=== PATIENT | female | born 1990 | race Caucasian/White ===

== ENCOUNTER 2018-10-19 22:41 | Emergency (ER) | payer OTHER ==
[~2018-10-19] VITALS: Wt 68.9 kg
[2018-10-20] MEDS ORDERED: ACETAMINOPHEN 325 MG TAB PO STA (00:34)
--- NOTE | 2018-10-20 00:57 | ERD ---
ER Documentation Chief Complaint Chief Complaint abd pain x 1 day, staes 4-5 weeks . denies vb HPI 28-year-old female presenting to the emergency department complaining of bilateral suprapubic cramping intermittently for the past 1 day. She is G2, , last menstrual cycle of 09/06/2018, reportedly 5 weeks . She does not have an SPINE SURGEON physician. Symptoms are currently mild in severity. She denies any vaginal bleeding. She tried no medication for relief of symptoms at home. No other symptoms reported currently. ROS All systems reviewed and are negative except as per history of present illness. Medications Home Meds Active Scripts Cephalexin* (Keflex*) 500 Mg Capsule, 500 MG PO TID for 7 Days, CAP Prov:TREVOR SWANSON PA-C 10/20/18 Allergies Allergies: Coded Allergies: No Known Drug Allergies (Verified Allergy, Unknown, 10/19/18) PMhx/Soc Medical and Surgical Hx: pt denies Surgical Hx History of Surgery: Yes (Abominal hernia surgery 2017) Hx Alcohol Use: No Hx Substance Use: No Hx Tobacco Use: No FmHx Family History: No diabetes Physical Exam Vitals Vital Signs Date Temp Pulse Resp B/P (MAP) Pulse Ox O2 O2 Flow FiO2 Time Delivery Rate 10/20/18 97.8 63 19 109/60 99 Room Air 03:15 (76) 10/19/18 98.9 69 18 123/58 100 23:07 (79) Physical Exam Const: No acute distress Head: Atraumatic Eyes: Normal Conjunctiva ENT: Normal External Ears, Nose and Mouth. Neck: Full range of motion. No meningismus. Resp: Clear to auscultation bilaterally Cardio: Regular rate and rhythm, no murmurs Abd: Soft, non tender, non distended. Normal bowel sounds. No rebound t enderness or guarding. No McBurney's point tenderness. Mild suprapubic tenderness palpation bilaterally, worse on the left. Skin: No petechiae or rashes Back: No midline or flank tenderness. No CVA tenderness. Ext: No cyanosis, or edema Neur: Awake and alert Psych: Normal Mood and Affect Result Diagram: 10/20/18 0043 10/20/18 0043 Results 24 hrs Laboratory Tests Test 10/20/18 00:43 6/7/19 00:44 White Blood Count 9.5 10^3/ul Red Blood Count 4.32 10^6/ul Hemoglobin 12.7 g/dl Hematocrit 38.6 % Mean Corpuscular Volume 89.4 fl Mean Corpuscular Hemoglobin 29.4 pg Mean Corpuscular Hemoglobin Concent 32.9 g/dl Red Cell Distribution Width 13.6 % Platelet Count 267 10^3/UL Mean Platelet Volume 11.7 fl Immature Granulocytes % 0.300 % Neutrophils % 58.1 % Lymphocytes % 32.7 % Monocytes % 7.2 % Eosinophils % 1.1 % Basophils % 0.6 % Nucleated Red Blood Cells % 0.0 /100WBC Immature Granulocytes # 0.030 10^3/ul Neutrophils # 5.5 10^3/ul Lymphocytes # 3.1 10^3/ul Monocytes # 0.7 10^3/ul Eosinophils # 0.1 10^3/ul Basophils # 0.1 10^3/ul Nucleated Red Blood Cells # 0.0 10^3/ul Sodium Level 139 mmol/L Potassium Level 3.8 mmol/L Chloride Level 103 mmol/L Carbon Dioxide Level 26 mmol/L Anion Gap 10 Blood Urea Nitrogen 10 mg/dl Creatinine 0.79 mg/dl Est Glomerular Filtrat Rate mL/min > 60 mL/min Glucose Level 87 mg/dl Calcium Level 9.4 mg/dl Total Bilirubin 0.4 mg/dl Direct Bilirubin 0.00 mg/dl Indirect Bilirubin 0.4 mg/dl Aspartate Amino Transf (AST/SGOT) 43 IU/L Alanine Aminotransferase (ALT/SGPT) 41 IU/L Alkaline Phosphatase 73 IU/L Total Protein 8.1 g/dl Albumin 4.6 g/dl Globulin 3.50 g/dl Albumin/Globulin Ratio 1.31 Beta HCG, Quantitative 40495.0 mIU/ml Urine Color YELLOW Urine Clarity SLIGHTLY CLOUDY Urine pH 6.0 Urine Specific [place] 1.010 Urine Ketones NEGATIVE mg/dL Urine Nitrite NEGATIVE mg/dL Urine Bilirubin NEGATIVE mg/dL Urine Urobilinogen NEGATIVE mg/dL Urine Leukocyte Esterase 3+ Vipul/ul Urine Microscopic RBC 8 /HPF Urine Microscopic WBC 19 /HPF Urine Squamous Epithelial Cells FEW /HPF Urine Bacteria FEW /HPF Urine Hemoglobin 2+ mg/dL Urine Glucose NEGATIVE mg/dL Urine Total Protein NEGATIVE mg/dl Current Medications Medications Dose Sig/Rick Start Time Status Last (Trade) Ordered Route PRN Stop Time Admin Dose Reason Admin 650 mg ONCE STAT 10/20/18 DC 10/20/18 Acetaminophen PO 00:34 10/20/18 00:51 (Tylenol 00:35 Tab) Procedures/MDM 28-year-old female presents to the emergency department complaining of bilateral suprapubic pain. She is reportedly 5 weeks . Obstetrics ultrasound revealed a live intrauterine with heart tones present. Patient was administered Tylenol in the department with good response. She was improved prior to discharge. Beta-hCG was consistent with term of . Patient symptoms likely secondary to urinary tract infection. No evidence of ectopic , tubo-ovarian abscess, ovarian torsion, or other emergencies. Patient will be discharged home in stable condition with instructions to follow- up with SPINE SURGEON physician within the next 24 to 48 hours and return to the department immediately for any new or worsening or concerning symptoms. Patient was in agreement with the diagnosis, plan, need for follow-up, and return precau tions. Departure Diagnosis: Primary Impression: Pelvic pain complicating Additional Impression: UTI (urinary tract infection) Condition: Fair Patient Instructions: Pelvic Pain In : Unclear (2-3 Trimester) TREVOR SWANSON PA-C Oct 20, 2018 00:57
[2018-10-20] MEDS ORDERED: CEPH-443 PO (03:02)
[2018-10-20 03:15] VITALS: BP 109/60; PULSE 63; RESP 19
== END 2018-10-20 03:16 | disposition home or self-care (01) ==
LOC: FTE 22:41
DX: O26.891 Other specified pregnancy related conditions, first trimester (principal); R10.2 Pelvic and perineal pain; O23.41 Unspecified infection of urinary tract in pregnancy, first trimester; Z3A.01 Less than 8 weeks gestation of pregnancy
CPT/HCPCS: 36415; 76801; 80053; 81001; 84702; 85025; 86900; 86901; Z7502; Z7610

== ENCOUNTER 2018-12-11 23:41 | Emergency (ER) | payer OTHER ==
[~2018-12-11] VITALS: Ht 157.5 cm; Wt 75.0 kg
[~2018-12-11 23:41] MED LIST: CEPH-443 PO; HYDR-4011 PO; IBUP-1542 PO
[2018-12-11 23:47] VITALS: Ht 157.5 cm; Wt 75.0 kg
[2018-12-12] MEDS ORDERED: SOD CHLORIDE 0.9% 1,000 ML IV STA (01:06)
--- NOTE | 2018-12-12 01:29 | ERD ---
ER Documentation Chief Complaint Chief Complaint VAGINAL BLEEDING HPI G1, P2 female with an LMP of September 06, 2017 presents with complaint of bleeding and abdominal cramping since 3 hours ago. States that she took Tylenol at 10 PM. States that she thinks it might be a miscarriage does not want to lose her baby. Patient denies any allergies. Patient denies any medical problems. Patient denies any nausea, vomiting, diarrhea, fevers, chills, flank pain. ROS All systems reviewed and are negative except as per history of present illness. Medications Home Meds Active Scripts Hydrocodone/Acetaminophen ([place] 5-325 Tablet) 1 Each Tablet, 1-2 TAB PO Q6H PRN for PAIN, #15 TAB Prov:TREVOR RIZVI 12/12/18 Ibuprofen* (Motrin*) 600 Mg Tab, 600 MG PO Q6, #30 TAB Prov:TREVOR RIZVI 12/12/18 Cephalexin* (Keflex*) 500 Mg Capsule, 500 MG PO TID for 7 Days, CAP Prov:TREVOR SWANSON PA-C 10/20/18 Allergies Allergies: Coded Allergies: No Known Drug Allergies (Verified Allergy, Unknown, 10/19/18) PMhx/Soc History of Surgery: No Hx Respiratory Disorders: Yes (aSTHMA) Hx Alcohol Use: No Hx Substance Use: No Hx Tobacco Use: No Smoking Status: Never smoker Physical Exam Vitals Vital Signs Date Temp Pulse Resp B/P (MAP) Pulse Ox O2 O2 Flow FiO2 Time Delivery Rate 12/12/18 98.6 83 18 104/59 98 03:52 (74) 12/11/18 99.6 94 16 119/59 97 23:47 (79) Physical Exam Const: No acute distress Head: Atraumatic Eyes: Normal Conjunctiva ENT: Normal External Ears, Nose and Mouth. Neck: Full range of motion. No meningismus. Resp: Clear to auscultation bilaterally Cardio: Regular rate and rhythm, no murmurs Abd: Soft, non tender, non distended. Normal bowel sounds Skin: No petechiae or rashes Back: No midline or flank tenderness Ext: No cyanosis, or edema Neur: Awake and alert Psych: Normal Mood and Affect Pelvic: As I went to assess the vaginal bleeding, I saw the fetus in the patient's underwear along with the placenta. Fetus was placed in a pathology container and sent to pathology. Result Diagram: 12/12/18 0125 12/12/18 0126 Results 24 hrs Laboratory Tests Test 12/12/18 01:25 12/12/18 01:26 White Blood Count 21.1 10^3/ul Red Blood Count 4.10 10^6/ul Hemoglobin 12.0 g/dl Hematocrit 35.8 % Mean Corpuscular Volume 87.3 fl Mean Corpuscular Hemoglobin 29.3 pg Mean Corpuscular Hemoglobin Concent 33.5 g/dl Red Cell Distribution Width 13.2 % Platelet Count 269 10^3/UL Mean Platelet Volume 11.2 fl Immature Granulocytes % 0.500 % Neutrophils % 89.0 % Lymphocytes % 5.1 % Monocytes % 5.0 % Eosinophils % 0.0 % Basophils % 0.4 % Nucleated Red Blood Cells % 0.0 /100WBC Immature Granulocytes # 0.110 10^3/ul Neutrophils # 18.8 10^3/ul Lymphocytes # 1.1 10^3/ul Monocytes # 1.1 10^3/ul Eosinophils # 0.0 10^3/ul Basophils # 0.1 10^3/ul Nucleated Red Blood Cells # 0.0 10^3/ul Urine Color YELLOW Urine Clarity SLIGHTLY CLOUDY Urine pH 6.0 Urine Specific [place] 1.010 Urine Ketones 2+ mg/dL Urine Nitrite NEGATIVE mg/dL Urine Bilirubin NEGATIVE mg/dL Urine Urobilinogen NEGATIVE mg/dL Urine Leukocyte Esterase TRACE Vipul/ul Urine Microscopic RBC 48 /HPF Urine Microscopic WBC 12 /HPF Urine Squamous Epithelial Cells FEW /HPF Urine Bacteria FEW /HPF Urine Hemoglobin 3+ mg/dL Urine Glucose NEGATIVE mg/dL Urine Total Protein NEGATIVE mg/dl Beta HCG, Quantitative 85057.0 mIU/ml Sodium Level 135 mmol/L Potassium Level 3.7 mmol/L Chloride Level 104 mmol/L Carbon Dioxide Level 20 mmol/L Anion Gap 11 Blood Urea Nitrogen 5 mg/dl Creatinine 0.54 mg/dl Est Glomerular Filtrat Rate mL/min > 60 mL/min Glucose Level 99 mg/dl Calcium Level 9.7 mg/dl Total Bilirubin 0.4 mg/dl Direct Bilirubin 0.00 mg/dl Indirect Bilirubin 0.4 mg/dl Aspartate Amino Transf (AST/SGOT) 24 IU/L Alanine Aminotransferase (ALT/SGPT) 25 IU/L Alkaline Phosphatase 132 IU/L Total Protein 8.1 g/dl Albumin 4.0 g/dl Globulin 4.10 g/dl Albumin/Globulin Ratio 0.97 Current Medications Medications Dose Sig/Rick Start Time Status Last (Trade) Ordered Route PRN Stop Time Admin Dose Reason Admin Sodium 1,000 ml @ Q1H STAT 12/12/18 DC 12/12/18 Chloride 1,000 mls/hr IV 01:06 01:38 12/12/18 02:05 Morphine 2 mg ONCE STAT 12/12/18 DC 12/12/18 Sulfate IV 01:30 01:42 (morphine) 12/12/18 01:31 Ondansetron 2 mg ONCE STAT 12/12/18 DC 12/12/18 HCl (Zofran IV 01:30 01:41 Inj) 12/12/18 01:31 Procedures/MDM DIAGNOSTIC IMAGING REPORT Patient: GABI ORDONEZ : 1990 Age: 28 Sex: F MR #: [id number] DOS: 12/12/18 0106 Ordering MD: TREVOR RIZVI Location: [facility] Room/Bed: PROCEDURE: ULTRASOUND OBSTETRICAL CLINICAL INDICATION: 28-year-old female with vaginal bleeding and history of spontaneous . TECHNIQUE: Multiple sonographic images of the pelvis were obtained utilizing a transabdominal and endovaginal technique. The images were reviewed on a PACS workstation. COMPARISON: None. FINDINGS: The uterus is visualized and measures 12.5 x 7.4 x 8.2 cm. There is no sonographic evidence for an intrauterine gestation. The endometrial echo complex is within normal limits and measures 14.9 mm without abnormal color flow. There is no evidence for free fluid. The ovaries were not visualized bilaterally.. No adnexal masses are noted. IMPRESSION: 1. Enlarged uterus without sonographic evidence for an intrauterine gestation. 2. The ovaries were not visualized bilaterally. .Jose Reynolds MD, Date Time Electronically viewed and signed by .Jose Reynolds MD, MD on 12/12/2018 02:45 .M/ CC: TREVOR RIZVI [id number] MDM: Fetus was removed from patient's underwear along with placenta. Pelvic exam was performed and there were no retained POC's. OS was closed. In addition patient's bleeding had resolved by that time. Fetus was placed in co ntainer and sent to pathology lab. I discussed case my supervising physician Dr. rojas and he stated that as long as the ultrasound showed no retained products of conception patient will be fit for discharge with OB follow-up. I explained this the patient and patient agreed to follow-up with her OB. Patient endorsed having an OB. Patient advised to follow-up with OB within 24 hours will return to ER in 48 hours for repeat exam. Patient understood and agreed to do so. MDM: . I have low suspicion for septic , pyelonephritis, placenta abrupta, appendicitis, cholecystitis, bowel obstruction, ovarian torsion, symptomatic anema, PID, surgical abdomen, hemorrhage, or other life threatening conditions based on patient history, physical exam, and lab/imaging results. At time of discharge patient was hemodynamically stable. At this time, patient is stable for discharge and outpatient management. I have instructed the patient to follow-up with his/her OB in 1-2 days. I have dis cussed with the patient the possibility of needing to see a specialist for further workup and imaging studies if symptoms persist. I have instructed the patient to promptly return to the ER for any new or worsening symptoms including but not limited to increased pain, fever, nausea, vomiting, weakness or LOC. The patient and/or family expressed understanding of and agreement with this plan. All questions were answered. Home care instructions were provided. DISCLAIMER: Inadvertent spelling and grammatical errors are likely due to EHR/dictation software use and do not reflect on the overall quality of patient care. Also, please note that the electronic time recorded on this note does not necessarily reflect the actual time of the patient encounter. Departure Diagnosis: Primary Impression: Condition: Stable TREVOR RIZVI Dec 12, 2018 01:29
[2018-12-12] MEDS ORDERED: morphine 2 MG INJ IV STA (01:30)
[2018-12-12] MEDS ORDERED: ONDANSETRON 4 MG INJ IV STA (01:30)
[2018-12-12 03:52] VITALS: BP 104/59; PULSE 83; RESP 18
--- NOTE | 2018-12-12 05:24 | EN ---
Date/Time of Note Date/Time of Note DATE: 12/12/18 TIME: 05:22 ER Progress Note Upon reviewing patient's white count I spoke to supervising physician Dr. Hernandez and he stated that patient should be called back to return to ER. Patient was nontoxic-appearing at discharge and felt fine. Nevertheless, I spoke with patient over the phone at approximately 5:15 AM and patient agreed to return to ER right away for further assessment. TREVOR RIZVI Dec 12, 2018 05:24
== END 2018-12-12 03:54 | disposition home or self-care (01) ==
LOC: FTE 23:41
DX: O03.9 Complete or unspecified spontaneous abortion without complication (principal); O99.52 Diseases of the respiratory system complicating childbirth; J45.909 Unspecified asthma, uncomplicated; R10.2 Pelvic and perineal pain
CPT/HCPCS: 76801; 80053; 81001; 84702; 85025; 86900; 86901; J2270; J2405; J7030; 36415; 88305; 96361; 96374; 96375

== ENCOUNTER 2018-12-12 05:42 | Emergency (ER) | payer OTHER ==
[~2018-12-12] VITALS: Ht 162.6 cm; Wt 63.7 kg
[2018-12-12 05:46] VITALS: BP 103/58; PULSE 84; RESP 19; Ht 162.6 cm; Wt 63.7 kg
--- NOTE | 2018-12-12 07:26 | ERD ---
ER Documentation Chief Complaint Chief Complaint REFFERED COME BACK TO ED; VAG BLEED; 16WKS PREG-POSS MISCARRIAGING; HPI 28-year-old female presenting for repeat CBC after a 16-week fetus miscarriage last night. Patient is only having mild bleeding now and no pain. She has no fevers and denies any dysuria. Patient had elevated white count from her previous visit 4 hours ago was recommended to return to the ER for repeat test to ensure that her white count was dropping. Patient has no pain. Denies medical problems. NKDA. Surgical history hernia repair. Social history denies. G2, P1 ROS All systems reviewed and are negative except as per history of present illness. Medications Home Meds Active Scripts Hydrocodone/Acetaminophen ([place] 5-325 Tablet) 1 Each Tablet, 1-2 TAB PO Q6H PRN for PAIN, #15 TAB Prov:TREVOR RIZVI 12/12/18 Ibuprofen* (Motrin*) 600 Mg Tab, 600 MG PO Q6, #30 TAB Prov:TREVOR RIZVI 12/12/18 Cephalexin* (Keflex*) 500 Mg Capsule, 500 MG PO TID for 7 Days, CAP Prov:TREVOR SWANSON PA-C 10/20/18 Allergies Allergies: Coded Allergies: No Known Drug Allergies (Verified Allergy, Unknown, 10/19/18) PMhx/Soc History of Surgery: Yes (Umbilical Hernia) Hx Respiratory Disorders: Yes (Asthma) Hx Cardiac Disorders: No Hx Miscellaneous Medical Probl: No Hx Alcohol Use: No Hx Substance Use: No Hx Tobacco Use: No Smoking Status: Never smoker FmHx Family History: No diabetes, No coronary disease, No other Physical Exam Vitals Vital Signs Date Temp Pulse Resp B/P (MAP) Pulse Ox O2 O2 Flow FiO2 Time Delivery Rate 12/12/18 98.1 84 19 103/58 100 05:46 (73) Physical Exam GENERAL: The patient is well-appearing, well-nourished, in no acute distress CHEST: Clear to auscultation bilaterally. There are no rales, wheezes or rhonchi. HEART: Regular rate and rhythm. No murmurs, clicks, rubs or gallops. ABDOMEN:Soft, nontender and nondistended. Good bowel sounds. No rebound or guarding. No gross peritonitis. No gross organomegaly or masses. BACK: No midline or flank tenderness. E Result Diagram: 12/12/18 0649 Results 24 hrs Laboratory Tests Test 12/12/18 06:49 White Blood Count 18.6 10^3/ul Red Blood Count 3.82 10^6/ul Hemoglobin 11.2 g/dl Hematocrit 33.8 % Mean Corpuscular Volume 88.5 fl Mean Corpuscular Hemoglobin 29.3 pg Mean Corpuscular Hemoglobin Concent 33.1 g/dl Red Cell Distribution Width 13.2 % Platelet Count 260 10^3/UL Mean Platelet Volume 10.6 fl Immature Granulocytes % 0.600 % Neutrophils % 85.8 % Lymphocytes % 9.5 % Monocytes % 3.7 % Eosinophils % 0.1 % Basophils % 0.3 % Nucleated Red Blood Cells % 0.0 /100WBC Immature Granulocytes # 0.110 10^3/ul Neutrophils # 16.0 10^3/ul Lymphocytes # 1.8 10^3/ul Monocytes # 0.7 10^3/ul Eosinophils # 0.0 10^3/ul Basophils # 0.1 10^3/ul Nucleated Red Blood Cells # 0.0 10^3/ul Procedures/MDM ER course: WBC has decreased from 21-18. This case was discussed with Dr. Hernandez and Dr. Ray at discharge. Given patient has no abdominal pain is a normal exam and vitals are stable patient is likely having a elevated white count due to traumatic miscarriage. I will suspicion for retained products as previous ultrasound was within normal limits and patient is not having abdominal pain. Patient is recommended to follow-up with OB within the next 1 to 2 days for close evaluation. MDM: 28-year-old female presenting for recheck of white blood cell count. Patient's white blood cells have dropped in the last couple hours and patient has experienced elevated white blood cells likely due to traumatic . I do not feel there is indication for repeat ultrasound given patient is not having abdominal pain and ultrasound few hours ago showed no retained products of conception. Patient's vitals are stable and exam is non-concerning. I have low suspicion for infectious process. Patient is recommended to follow-up with OB within the next 1 to 2 days for close evaluation. She is told symptoms change or worsen to return immediately to the ER. All questions answered at discharge Departure Diagnosis: Primary Impression: Miscarriage Condition: Stable Patient Instructions: Miscarriage, Spontaneous (Completed) Referrals: PROFESSOR [employer]IAL [place] [address] [facility] [address] [place] [address] OFFICE FAX , [address] [place] [address] DR. MCCRAYFORMERLY [facility] [address] [place] [address] [address] LONG [facility] [address] [facility] [address] [address] [facility] [address] [place] [address] [facility] [address] [place] [address] [facility] [id number] - [address] WELSH DESTIN [address], [place] [address] DR GONZALEZ, [facility] [address] [facility], [place] [address] [address] [facility] [address] [place], [place] [id number] Additional Instructions: FOLLOW UP WITH YOUR PRIMARY CARE PHYSICIAN TOMORROW.Return to this facility if you are not improving as expected. HAROON FLORES PA-C Dec 12, 2018 07:26
== END 2018-12-12 07:11 | disposition home or self-care (01) ==
LOC: FTE 05:42
DX: O03.9 Complete or unspecified spontaneous abortion without complication (principal); O99.52 Diseases of the respiratory system complicating childbirth; J45.909 Unspecified asthma, uncomplicated
CPT/HCPCS: 85025; 99283